=== PATIENT | male | born 1985 | race Caucasian/White ===

== ENCOUNTER 2018-10-05 19:07 | Emergency (ER) | payer SELFPAY ==
[2018-10-05] MEDS ORDERED: Benzocaine 20% Topical Spray UD MUCMEM ONE (19:19)
[2018-10-05] MEDS ORDERED: Lidocaine 2% Viscous Solution 15 ML Cup PO ONE (19:19)
--- NOTE | 2018-10-05 19:19 | EDM.PDOC ---
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 Coyne no fever nausea vomiting chills sweats] Review of systems: As per history of present illness and below otherwise all systems reviewed and negative. Past medical history: As per history of present illness and as reviewed below otherwise noncontributory. Surgical history: As per history of present illness and as reviewed below otherwise noncontributory. Social history: No reported history of drug or alcohol abuse. Family history: As per history of present illness and as reviewed below otherwise noncontributory. Physical exam: HEENT: Atraumatic, normocephalic, pupils reactive, negative for conjunctival pallor or scleral icterus, mucous membranes moist, throat clear, neck supple, nontender, trachea midline. Dentition as per history of present illness Lungs: Clear to auscultation, breath sounds equal bilaterally, chest nontender. Heart: S1S2, regular, negative for clicks, rubs, or JVD. Abdomen: Soft, nondistended, nontender. Negative for masses or hepatosplenomegaly. Negative for costovertebral tenderness. Pelvis: Stable nontender. Genitourinary: Deferred. Rectal: Deferred. Extremities: Atraumatic, negative for cords or calf pain. Neurovascular unremarkable. Neuro: Awake, alert, oriented. Cranial nerves II through XII unremarkable. Cerebellum unremarkable. Motor and sensory unremarkable throughout. Exam nonfocal. Diagnostics: [Clinical ] Therapeutics: [Augmentin Toradol Dental balls] Impression: [ dental abscess ] Definitive disposition and diagnosis as appropriate pending reevaluation and review of above. Left Tooth/Teeth Pain Score (Numeric/FACES): 3 ED ROS GENERAL - Review of Systems Review Of Systems: See Below ED EXAM, GENERAL - Physical Exam Exam: See Below Course - Vital Signs Last Recorded V/S: Last Vital Signs Temp 96.7 F 10/05/18 19:15 Pulse 72 10/05/18 19:15 Resp BP 136/78 10/05/18 19:15 Pulse Ox 93 L 10/05/18 19:15 Departure - Departure Time of Disposition: 19:19 Disposition: Home, Self-Care 01 Condition: Good Clinical Impression: Dental abscess - Discharge Information Additional Instructions: The following information is given to patients seen in the emergency department who are being discharged to home. This information is to outline your options for follow-up care. We provide all patients seen in our emergency department with a follow-up referral. The need for follow-up, as well as the timing and circumstances, are variable depending upon the specifics of your emergency department visit. If you don't have a primary care physician on staff, we will provide you with a referral. We always advise you to contact your personal physician following an emergency department visit to inform them of the circumstance of the visit and for follow-up with them and/or the need for any referrals to a consulting specialist. The emergency department will also refer you to a specialist when appropriate. This referral assures that you have the opportunity for follow-up care with a specialist. All of these measure are taken in an effort to provide you with optimal care, which includes your follow-up. Under all circumstances we always encourage you to contact your private physician who remains a resource for coordinating your care. When calling for follow-up care, please make the office aware that this follow-up is from your recent emergency room visit. If for any reason you are refused follow-up, please contact the [facility] emergency department at and asked to speak to the emergency department charge nurse.
== END 2018-10-05 19:31 | disposition home or self-care (01) ==
LOC: MW.ED 19:07
DX: K04.7 Periapical abscess without sinus (principal)
CPT/HCPCS: 99283; A9270; 99282

== ENCOUNTER 2019-06-01 10:55 | Emergency (ER) | payer BC ==
[2019-06-01] MEDS ORDERED: Ketorolac 60 MG/2 ML SDV IM ONE (11:15)
--- NOTE | 2019-06-01 11:18 | EDM.PDOC ---
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 unable to remain seated without repositioning he states being on all fours with his back arched provide some relief however requires help to stand He has no footdrop saddle anesthesia or bowel or urine symptoms Review of systems: As per history of present illness and below otherwise all systems reviewed and negative. Past medical history: As per history of present illness and as reviewed below otherwise noncontributory. Surgical history: As per history of present illness and as reviewed below otherwise noncontributory. Social history: No reported history of drug or alcohol abuse. Family history: As per history of present illness and as reviewed below otherwise noncontributory. Physical exam: HEENT: Atraumatic, normocephalic, pupils reactive, negative for conjunctival pallor or scleral icterus, mucous membranes moist, throat clear, neck supple, nontender, trachea midline. Lungs: Clear to auscultation, breath sounds equal bilaterally, chest nontender. Heart: S1S2, regular, negative for clicks, rubs, or JVD. Abdomen: Soft, nondistended, nontender. Negative for masses or hepatosplenomegaly. Negative for costovertebral tenderness. Pelvis: Stable nontender. Genitourinary: Deferred. Rectal: Deferred. Extremities: Atraumatic, negative for cords or calf pain. Neurovascular unremarkable. Neuro: Awake, alert, oriented. Cranial nerves II through XII unremarkable. Cerebellum unremarkable. Motor and sensory unremarkable throughout. Exam nonfocal. musskuloskeletal: no vpt, reproduced over right lumbar paraspinous muscle Diagnostics: lumbar spine ] Therapeutics: [Toradol 60 IM Valium 5 mg by mouth] Toradol Flexeril heat/ice 20#wt limit 48 hours off f/u pcp Impression: Low back pain paraspinous muscle spasm right greater than left ] Definitive disposition and diagnosis as appropriate pending reevaluation and review of above. back Pain Score (Numeric/FACES): 9 - Related Data Allergies Allergy/AdvReac Type Severity Reaction Status Date / Time fexofenadine [From Nuris] Allergy Hives Verified 06/01/19 11:07 Home Meds: Home Meds . [No Known Home Meds] 10/05/18 [History] Past Medical History - Infectious Disease History Infectious Disease History: Reports: None - Past Surgical History HEENT Surgical History: Reports: Oral Surgery, Other (See Below) Other HEENT Surgeries/Procedures: middle ear surgery GI Surgical History: Reports: Hernia Repair/Other Social & Family History - Family History Family Medical History: Noncontributory - Tobacco Use Smoking Status *Q: Current Every Day Smoker Years of Tobacco use: 16 Packs/Tins Daily: 0.5 - Recreational Drug Use Recreational Drug Use: No ED ROS GENERAL - Review of Systems Review Of Systems: See Below ED EXAM, GENERAL - Physical Exam Exam: See Below Course - Vital Signs Last Recorded V/S: Last Vital Signs Temp 97.7 F 06/01/19 11:07 Pulse 88 06/01/19 11:07 Resp 20 06/01/19 11:07 BP 131/92 H 06/01/19 11:07 Pulse Ox 96 06/01/19 11:07 - Orders/Labs/Meds Orders: Active Orders 24 hr Category Date Time Status diazePAM [Valium Intensol 5 MG/ML] Med 06/01/19 11:57 Once 5 mg PO ONETIME ONE Meds: Medications Discontinued Medications Generic Name Dose Route Start Last Admin Trade Name Christiano PRN Reason Stop Dose Admin Ketorolac Tromethamine 60 mg 06/01/19 11:15 06/01/19 11:22 Toradol IM 06/01/19 11:16 60 mg ONETIME ONE Administration Departure - Departure Time of Disposition: 11:59 Disposition: Home, Self-Care 01 Condition: Good Clinical Impression: Low back pain, Spasm of lumbar paraspinous muscle - Discharge Information Referrals: PCP,None [Primary Care Provider] - Forms: ED Department Discharge Additional Instructions: Medication as prescribed Return if symptoms persist or worsen 20 pound weight limit recommended Ice 20 minute intervals 3 times daily as needed stretching exercises as discussed Follow-up with primary care in 2 weeks sooner as needed 48 hours off work provided, follow-up with primary care for further restriction/ release [facility] [address] [place] [id number] The following information is given to patients seen in the emergency department who are being discharged to home. This information is to outline your options for follow-up care. We provide all patients seen in our emergency department with a follow-up referral. The need for follow-up, as well as the timing and circumstances, are variable depending upon the specifics of your emergency department visit. If you don't have a primary care physician on staff, we will provide you with a referral. We always advise you to contact your personal physician following an emergency department visit to inform them of the circumstance of the visit and for follow-up with them and/or the need for any referrals to a consulting specialist. The emergency department will also refer you to a specialist when appropriate. This referral assures that you have the opportunity for follow-up care with a specialist. All of these measure are taken in an effort to provide you with optimal care, which includes your follow-up. Under all circumstances we always encourage you to contact your private physician who remains a resource for coordinating your care. When calling for follow-up care, please make the office aware that this follow-up is from your recent emergency room visit. If for any reason you are refused follow-up, please contact the [facility] emergency department at and asked to speak to the emergency department charge nurse. - My Orders Last 24 Hours: My Active Orders 06/01/19 11:57 diazePAM [Valium Intensol 5 MG/ML] 5 mg PO ONETIME ONE - Assessment/Plan Last 24 Hours: My Active Orders 06/01/19 11:57 diazePAM [Valium Intensol 5 MG/ML] 5 mg PO ONETIME ONE
--- NOTE | 2019-06-01 11:41 | CR ---
Indication: Low back pain. Technique: Three views of the lumbar spine were obtained. Comparison: None Findings: The alignment of the lumbar spine is within normal limits. The vertebral body heights are well maintained. Intervertebral disc space narrowing is identified at L5-S1. Mild facet joint arthropathy of the lower lumbar spine is identified. Impression: Mild degenerative change. No fracture. Dictated by Josselin Mariee MD @ Jun 01 2019 11:40AM Signed by Dr. Josselin Mariee @ Jun 01 2019 11:41AM
[2019-06-01] MEDS ORDERED: Diazepam 5 MG Tab PO ONE (11:57)
== END 2019-06-01 12:32 | disposition home or self-care (01) ==
LOC: MW.ED 10:55
DX: M54.5 Low back pain (principal); M62.830 Muscle spasm of back; F17.210 Nicotine dependence, cigarettes, uncomplicated; Z88.8 Allergy status to other drugs, medicaments and biological substances
CPT/HCPCS: 72100; 96372; 99283; A9270; J1885

== ENCOUNTER 2019-06-03 09:33 | Emergency (ER) | payer BC ==
[2019-06-03] MEDS ORDERED: Ketorolac 60 MG/2 ML SDV IM ONE (10:33)
--- NOTE | 2019-06-03 10:42 | EDM.PDOC ---
ED HPI GENERAL MEDICAL PROBLEM - General Chief Complaint: Back Pain or Injury Stated Complaint: BACK PAIN Time Seen by Provider: 06/03/19 10:22 Source of Information: Reports: Patient History Limitations: Reports: No Limitations - History of Present Illness INITIAL COMMENTS - FREE TEXT/NARRATIVE: Presents reporting continuing back pain. He pulled up his sweat pants on Sunday06/01/2019 and felt a pop and pain in the low back. He was seen in the ER here. An X-ray of the lumbar spine indicated mild degenerative change. He was treated with Toradol and muscle relaxants. He was given a work note for return to work tomorrow. The patient states he has an appointment in primary care for June 19. The patient states that he can walk about getting up and down from a lying or seated position is very painful and he does not believe he can work tomorrow. He has been taking his medications as directed. No fever, tingling or numbness down the buttocks, thighs legs or feet, bowel or bladder dysfunction. Lower Back Pain Score (Numeric/FACES): 9 - Related Data Allergies Allergy/AdvReac Type Severity Reaction Status Date / Time fexofenadine [From Nuris] Allergy Hives Verified 06/03/19 10:08 Home Meds: Home Meds Cyclobenzaprine [Flexeril] 10 mg PO TID 06/03/19 [History] Ketorolac [Toradol] 5 mg PO TID PRN 06/03/19 [History] diazePAM [Valium] 5 mg PO BEDTIME PRN #5 tab 06/03/19 [Rx] Past Medical History Cardiovascular History: Reports: None Respiratory History: Reports: None Genitourinary History: Reports: None Musculoskeletal History: Reports: None Neurological History: Reports: None Psychiatric History: Reports: None Endocrine/Metabolic History: Reports: None Hematologic History: Reports: None Immunologic History: Reports: None Oncologic (Cancer) History: Reports: None Dermatologic History: Reports: None - Infectious Disease History Infectious Disease History: Reports: Chicken Pox, Mononucleosis - Past Surgical History Head Surgeries/Procedures: Reports: None HEENT Surgical History: Reports: Oral Surgery, Other (See Below) Other HEENT Surgeries/Procedures: middle ear surgery GI Surgical History: Reports: Hernia Repair/Other Social & Family History - Family History Family Medical History: Noncontributory - Tobacco Use Smoking Status *Q: Current Every Day Smoker Years of Tobacco use: 16 Packs/Tins Daily: 0.5 - Recreational Drug Use Recreational Drug Use: No ED ROS GENERAL - Review of Systems Review Of Systems: ROS reveals no pertinent complaints other than HPI. ED EXAM,LOWER BACK PAIN/INJURY - Physical Exam Exam: See Below Exam Limited By: No Limitations General Appearance: Alert, No Apparent Distress, Other (When getting up from lying position, moderate distress.) Ears: Normal External Exam Nose: Normal Inspection Throat/Mouth: Normal Inspection Head: Atraumatic, Normocephalic Neck: Normal Inspection, Non-Tender Respiratory/Chest: No Respiratory Distress, Lungs Clear Cardiovascular: Normal Peripheral Pulses GI/Abdominal: Soft Back Exam: Normal Inspection, Muscle Spasm, Other (SI joint tenderness right). No: Paraspinal Tenderness, Vertebral Tenderness Extremities: Normal Inspection, Normal Range of Motion Neurological: Alert, Normal Mood/Affect. No: Straight Leg Raise (L), Straight Leg Raise (R), Saddle Anesthesia DTR - Lower Extremities: 2+: Knee (R), Knee (L) Psychiatric: Normal Affect, Normal Mood Skin Exam: Warm, Dry, Intact, Normal Color, No Rash Course - Vital Signs Last Recorded V/S: Last Vital Signs Temp 36.3 C 06/03/19 10:06 Pulse 61 06/03/19 10:06 Resp 18 06/03/19 10:06 BP 110/70 06/03/19 10:06 Pulse Ox 95 06/03/19 10:06 - Orders/Labs/Meds Meds: Medications Discontinued Medications Generic Name Dose Route Start Last Admin Trade Name Freq PRN Reason Stop Dose Admin Ketorolac Tromethamine 60 mg 06/03/19 10:33 Toradol IM 06/03/19 10:34 ONETIME ONE Departure - Departure Time of Disposition: 10:43 Disposition: Home, Self-Care 01 Condition: Good Clinical Impression: Lumbar strain Qualifiers: Encounter type: subsequent encounter Qualified Code(s): S39.012D - Strain of muscle, fascia and tendon of lower back, subsequent encounter - Discharge Information Prescriptions: diazePAM [Valium] 5 mg PO BEDTIME PRN #5 tab PRN Reason: Muscle Spasm Referrals: PCP,Unknown [Primary Care Provider] - [facility] [Outside] [facility] [Outside] Additional Instructions: 1. Follow-up with primary care as previously scheduled 2. Continue with anti-inflammatory and muscle relaxant as prescribed 3. Cold packs whichever feels best 20 minutes every 3-4 hours 4. Valium one tab before bed for muscle spasm and relaxation 5. Return to work 48 hours
== END 2019-06-03 11:26 | disposition home or self-care (01) ==
LOC: MW.ED 09:33
DX: S39.012D Strain of muscle, fascia and tendon of lower back, subsequent encounter (principal); F17.210 Nicotine dependence, cigarettes, uncomplicated; Z88.8 Allergy status to other drugs, medicaments and biological substances; X50.1XXD Overexertion from prolonged static or awkward postures, subsequent encounter
CPT/HCPCS: 96372; 99283; J1885

== ENCOUNTER 2019-07-01 20:14 | Emergency (ER) | payer BC ==
--- NOTE | 2019-07-01 21:31 | CR ---
INDICATION: Trauma, pain TECHNIQUE: Three views right foot COMPARISON: None FINDINGS: Bones: Alignment is normal. No fractures or bone lesions. Joint spaces: Unremarkable. Soft tissues: Mild dorsal soft tissue edema adjacent to the cuneiform bones. IMPRESSION: Mild dorsal soft tissue edema adjacent to the cuneiform bones. Dictated by Magan Sanchez MD @ 07/01/2019 9:30:30 PM Dictated by: Charanjit Schwab MD @ 07/01/2019 21:30:35 (Electronically Signed)
--- NOTE | 2019-07-01 21:32 | EDM.PDOC ---
ED HPI GENERAL MEDICAL PROBLEM - General Chief Complaint: Lower Extremity Injury/Pain Stated Complaint: POSSIBLE BROKEN RIGHT FOOT Time Seen by Provider: 07/01/19 21:32 Source of Information: Reports: Patient History Limitations: Reports: No Limitations - History of Present Illness INITIAL COMMENTS - FREE TEXT/NARRATIVE: HISTORY AND PHYSICAL: History of present illness: Patient is 33-year-old male presents to the ED with complaint of right foot injury. He states he dropped a 75-100 pound block on his foot this evening. He is able to bear some weight on it. Denies other injury and has no other complaints at this time. Review of systems: As per history of present illness and below otherwise all systems reviewed and negative. Past medical history: As per history of present illness and as reviewed below otherwise noncontributory. Surgical history: As per history of present illness and as reviewed below otherwise noncontributory. Social history: No reported history of drug or alcohol abuse. Family history: As per history of present illness and as reviewed below otherwise noncontributory. Physical exam: General: Patient sitting comfortably in no acute distress and nontoxic appearing HEENT: Atraumatic, normocephalic, pupils reactive, negative for conjunctival pallor or scleral icterus, mucous membranes moist, throat clear, neck supple, nontender, trachea midline. No meningeal signs. Lungs: Clear to auscultation, breath sounds equal bilaterally, chest nontender. Heart: S1S2, regular, negative for clicks, rubs, or overt murmur. Abdomen: Soft, nondistended, nontender. Negative for masses or hepatosplenomegaly. Negative for costovertebral tenderness. No rigidity, rebound , guarding. Pelvis: Stable nontender. Genitourinary: Deferred. Rectal: Deferred. Extremities: swelling to the right lateral foot with tenderness to palpation of 4th and 5th metatarsals. cMS intact distally. negative for cords or calf pain. Neurovascular unremarkable. Neuro: Awake, alert, oriented. Cranial nerves II through XII unremarkable. Cerebellum unremarkable. Motor and sensory unremarkable throughout. Exam nonfocal. Notes: Diagnostics: right foot x-ray Therapeutics: CAM boot Crutches Prescriptions: Impression: right foot injury Plan: 1. Ice, elevate, and motrin or tylenol as needed 2. Follow up with podiatry, please call the number provided to schedule an appointment 3. Return to ED as needed as discussed Definitive disposition and diagnosis as appropriate pending reevaluation and review of above. Right Feet Pain Score (Numeric/FACES): 5 - Related Data Allergies Allergy/AdvReac Type Severity Reaction Status Date / Time fexofenadine [From Nuris] Allergy Hives Verified 07/01/19 20:27 Home Meds: Home Meds . [No Known Home Meds] 07/01/19 [History] Past Medical History Cardiovascular History: Reports: None Respiratory History: Reports: None Genitourinary History: Reports: None Musculoskeletal History: Reports: None Neurological History: Reports: None Psychiatric History: Reports: None Endocrine/Metabolic History: Reports: None Hematologic History: Reports: None Immunologic History: Reports: None Oncologic (Cancer) History: Reports: None Dermatologic History: Reports: None - Infectious Disease History Infectious Disease History: Reports: Chicken Pox, Mononucleosis - Past Surgical History Head Surgeries/Procedures: Reports: None HEENT Surgical History: Reports: Oral Surgery, Other (See Below) Other HEENT Surgeries/Procedures: middle ear surgery GI Surgical History: Reports: Hernia Repair/Other Social & Family History - Family History Family Medical History: Noncontributory - Tobacco Use Smoking Status *Q: Current Every Day Smoker Years of Tobacco use: 15 Packs/Tins Daily: 1 - Caffeine Use Caffeine Use: Reports: None - Recreational Drug Use Recreational Drug Use: No Review of Systems - Review of Systems Review Of Systems: ROS reveals no pertinent complaints other than HPI. ED EXAM, GENERAL - Physical Exam Exam: See Below (see dictation) Course - Vital Signs Last Recorded V/S: Last Vital Signs Temp 97.4 F 07/01/19 20:24 Pulse 70 07/01/19 20:24 Resp 18 07/01/19 20:24 BP 120/80 07/01/19 20:24 Pulse Ox 98 07/01/19 20:24 - Orders/Labs/Meds Orders: Active Orders 24 hr Category Date Time Status DME for Discharge [COMM] Stat Oth 07/01/19 21:34 Ordered Departure - Departure Time of Disposition: 21:33 Disposition: Home, Self-Care 01 Condition: Good Clinical Impression: Right foot injury - Discharge Information Referrals: PCP,Unknown [Primary Care Provider] - Forms: ED Department Discharge Additional Instructions: The following information is given to patients seen in the emergency department who are being discharged to home. This information is to outline your options for follow-up care. We provide all patients seen in our emergency department with a follow-up referral. The need for follow-up, as well as the timing and circumstances, are variable depending upon the specifics of your emergency department visit. If you don't have a primary care physician on staff, we will provide you with a referral. We always advise you to contact your personal physician following an emergency department visit to inform them of the circumstance of the visit and for follow-up with them and/or the need for any referrals to a consulting specialist. The emergency department will also refer you to a specialist when appropriate. This referral assures that you have the opportunity for follow-up care with a specialist. All of these measure are taken in an effort to provide you with optimal care, which includes your follow-up. Under all circumstances we always encourage you to contact your private physician who remains a resource for coordinating your care. When calling for follow-up care, please make the office aware that this follow-up is from your recent emergency room visit. If for any reason you are refused follow-up, please contact the [facility] Emergency Department at and asked to speak to the emergency department charge nurse. [facility] [address] [place] [id number] 1. Ice, elevate, and motrin or tylenol as needed 2. Follow up with podiatry, please call the number provided to schedule an appointment 3. Return to ED as needed as discussed - My Orders Last 24 Hours: My Active Orders 07/01/19 21:34 DME for Discharge [COMM] Stat - Assessment/Plan Last 24 Hours: My Active Orders 07/01/19 21:34 DME for Discharge [COMM] Stat
== END 2019-07-01 22:13 | disposition home or self-care (01) ==
LOC: MW.ED 20:14
DX: S99.921A Unspecified injury of right foot, initial encounter (principal); F17.210 Nicotine dependence, cigarettes, uncomplicated; Z88.8 Allergy status to other drugs, medicaments and biological substances; W20.8XXA Other cause of strike by thrown, projected or falling object, initial encounter
CPT/HCPCS: 73630-26-RT; 73630-RT; 99282; 99283-25